=== PATIENT | female | born 1975 | race African-American/Black ===

== ENCOUNTER 2017-03-22 18:05 | Emergency (ER) | payer SELFPAY ==
[~2017-03-22] VITALS: Ht 162.6 cm; Wt 68.0 kg
[2017-03-22] MEDS ORDERED: LORazepam Inj 2mg/ml 1ml IV ONE (18:15)
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
[2017-03-22] MEDS ORDERED: Haloperidol 5mg/ml Inj IM ONE (18:30)
[2017-03-22] MEDS ORDERED: LORazepam Inj 2mg/ml 1ml IM ONE (18:30)
[2017-03-22 19:27] LABS: MEAN CORPUSCULAR HEMOGLOBIN 29.9 PG (27.0-31.0); MEAN CORPUSCULAR HGB CONC 29.5 G/DL (32.0-36.0); MEAN CORPUSCULAR VOLUME 101 FL (80-99); MEAN PLATELET VOLUME 5.5 FL (6.5-10.1); PLATELET COUNT 218 K/UL (150-450); RED BLOOD COUNT 4.18 M/UL (4.20-5.40); RED CELL DISTRIBUTION WIDTH 13.3 % (11.6-14.8); WHITE BLOOD COUNT 3.3 K/UL (4.8-10.8)
[2017-03-22 19:37] LABS: ANION GAP 9 mmol/L (5-15); CALCIUM 8.9 MG/DL (8.5-10.1); CARBON DIOXIDE 28 MMOL/L (21-32); CHLORIDE 108 MMOL/L (98-107); CREATININE 0.5 MG/DL (0.55-1.30); GLOMERULAR FILTRATION RATE > 60 mL/min (>60); POTASSIUM 5.1 MMOL/L (3.5-5.1); SODIUM 145 MMOL/L (136-145)
[2017-03-22 19:39] LABS: ALANINE AMINOTRANSFERASE 25 U/L (12-78); ALBUMIN/GLOBULIN RATIO 0.8 (1.0-2.7); ALCOHOL 397 mg/dL; ASPARTATE AMINO TRANSFERASE 40 U/L (15-37); TOTAL PROTEIN 8.5 G/DL (6.4-8.2)
[2017-03-22 19:43] LABS: ACETAMINOPHEN < 2 MCG/ML (10-30)
[2017-03-22 21:31] LABS: BAND NEUTROPHILS % (MANUAL) 0 % (0-8); BASOPHILS % (MANUAL) 1 % (0-2); EOSINOPHILS % (MANUAL) 2 % (0-3); LYMPHOCYTES % (MANUAL) 52 % (20-45); NEUTROPHILS % (MANUAL) 38 % (45-75); PLATELET ESTIMATE ADEQUATE; PLATELET MORPHOLOGY NORMAL; TOTAL CELLS COUNTED 100
[2017-03-22 21:32] LABS: MACROCYTES 1+
[2017-03-23 05:27] VITALS: BP 118/82
== END 2017-03-23 05:29 | disposition home or self-care (01) ==
LOC: EDBD 18:05 → EMR 18:35 → EDBD 18:35 → EMR 03-23 05:29
DX: F10.129 Alcohol abuse with intoxication, unspecified (principal)
CPT/HCPCS: 36415; 80053; 80307; 82962; 85007; 85025; 96372; 99284; G0480; J1630; 80329

== ENCOUNTER 2017-08-24 00:56 | Emergency (ER) | payer SELFPAY ==
[~2017-08-24] VITALS: Ht 165.1 cm; Wt 54.9 kg
[2017-08-24 01:05] VITALS: BP 130/61
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
[2017-08-24 03:05] VITALS: BP 128/68
[2017-08-24 05:40] VITALS: BP 0/0
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
== END 2017-08-24 05:40 | disposition home or self-care (01) ==
LOC: EDBD 00:56 → EMR 01:12
DX: F10.129 Alcohol abuse with intoxication, unspecified (principal); S00.531A Contusion of lip, initial encounter; S09.90XA Unspecified injury of head, initial encounter; Y09 Assault by unspecified means; Y92.9 Unspecified place or not applicable; Z88.6 Allergy status to analgesic agent
CPT/HCPCS: 70450; 99284

== ENCOUNTER 2017-11-08 07:12 | Emergency (ER) | payer OTHER, SELFPAY ==
[~2017-11-08] VITALS: Ht 167.6 cm; Wt 54.9 kg
[2017-11-08 07:36] VITALS: BP 157/101
[2017-11-08 08:40] VITALS: BP 131/89
[2017-11-08] MEDS ORDERED: CLOTRIMAZOLE15 GM TOPIC (08:40)
--- NOTE | 2017-11-08 08:45 | Emergency Room Report ---
History of Present Illness General Chief Complaint: Pain Source: Patient Present Illness HPI Patient presents with complaints of irritation around the buttock area Reports that has been ongoing for the past several days Patient did have diarrhea previously And feels that this contributed to the discomfort Denies any pain with defecation denies any abdominal pain Denies any fevers or chills Allergies: Coded Allergies: ASPIRIN (Unverified Allergy, Unknown, 08/24/17) NSAIDS (NON-STEROIDAL ANTI-INFLAMMA (Unverified Allergy, Unknown, 08/24/17) Patient History Past Medical History: see triage record Pertinent Family History: none Last Menstrual Period: 10/28/17 Now: No Reviewed Nursing Documentation: PMH: Agreed; PSxH: Agreed Nursing Documentation-PMH Past Medical History: No History, Except For Hx Cardiac Problems: Yes - endometrosis Hx Hypertension: Yes Review of Systems All Other Systems: negative except mentioned in HPI Physical Exam Vital Signs Date Time Temp Pulse Resp B/P (MAP) Pulse Ox O2 Delivery O2 Flow Rate FiO2 11/08/17 07:21 96.5 62 18 157/101 100 Room Air 96.4 Sp02 EP Interpretation: reviewed, normal General Appearance: well appearing, no apparent distress Head: normocephalic, atraumatic Eyes: bilateral eye PERRL, bilateral eye EOMI ENT: hearing grossly normal, normal pharynx Neck: supple Respiratory: lungs clear, normal breath sounds Cardiovascular #1: regular rate, rhythm Gastrointestinal: non tender, soft Rectal: other - With female nurse at bedside (jennie) patient's rectal exam reveals increased erythema on both buttock region, mild discomfort to palpation, area appears to be irritated from likely loose stool. No obvious fluctuance no cellulitis appreciated Musculoskeletal: normal inspection Neurologic: alert, oriented x3, responsive Skin: other - As above in the rectal exam Lymphatic: no adenopathy Medical Decision Making Diagnostic Impression: Primary Impression: rash Additional Impression: dermatitis ER Course Patient appears to have likely candidal type infection/contact dermatitis from the diarrhea. At this time there is no sign of any cellulitis Or abscess formation patient is provided ointment and requires close outpatient follow-up Last Vital Signs Date Time Temp Pulse Resp B/P (MAP) Pulse Ox O2 Delivery O2 Flow Rate FiO2 11/08/17 08:40 96.4 18 131/89 100 Room Air 96.4 11/08/17 07:21 62 Status: unchanged Disposition: HOME, SELF-CARE Condition: Stable Scripts Clotrimazole* (LOTRIMIN*) 15 Gm Cream..g. 1 APPLIC TOPIC TWICE A DAY for 7 Days, GM Prov: Rohit Rodas DO 11/08/17 Referrals: NON PHYSICIAN (PCP) Patient Instructions: Skin Yeast Infection, Rash, [id number] Additional Instructions: Patient is provided with the discharge instructions notified to follow up with primary doctor in the next 2-3 days otherwise return to the er with any worsening symptoms. Please note that this report is being documented using [employer] technology. This can lead to erroneous entry secondary to incorrect interpretation by the dictating instrument. Rohit Rodas DO Nov 08, 2017 08:45
[2017-11-08 08:52] VITALS: BP 131/89
== END 2017-11-08 08:54 | disposition home or self-care (01) ==
LOC: EMR 07:40
DX: L30.9 Dermatitis, unspecified (principal); I10 Essential (primary) hypertension
CPT/HCPCS: 99283

== ENCOUNTER 2017-12-17 01:45 | Emergency (ER) | payer OTHER ==
[~2017-12-17] VITALS: Ht 167.6 cm; Wt 56.7 kg
[~2017-12-17 01:45] MED LIST: CLOTRIMAZOLE15 GM TOPIC
[2017-12-17 02:03] VITALS: BP 127/79
--- NOTE | 2017-12-17 02:03 | Emergency Room Report ---
History of Present Illness General Chief Complaint: Pain Source: Patient Present Illness HPI This is a 42-year-old female who presents initially with chief complaint of back pain. But when I talked to her she started complaining of vaginitis, dysuria. Also complaining of chronic joint pain. Also complaining of headache. Also complaining of rectal bleeding his been ongoing for months. Denies any fever chills. Nothing made it better. Nothing made it worse. Pain is 10 out of 10. She is left [facility] 2 days ago Allergies: Coded Allergies: ASPIRIN (Unverified Allergy, Unknown, 08/24/17) DIPHENHYDRAMINE (Verified Allergy, Unknown, 12/17/17) Small dose ok; large dose leads to coma NSAIDS (NON-STEROIDAL ANTI-INFLAMMA (Unverified Allergy, Unknown, 08/24/17) Patient History Past Medical History: see triage record, old chart reviewed Past Surgical History: other Pertinent Family History: none Social History: Reports: alcohol use Last Menstrual Period: Unk Now: No Immunizations: other Reviewed Nursing Documentation: PMH: Agreed; PSxH: Agreed Nursing Documentation-PMH Past Medical History: No History, Except For Hx Cardiac Problems: Yes - Endometriosis Hx Hypertension: Yes Review of Systems Eye: Denies: eye pain, blurred vision ENT: Denies: ear pain, nose congestion, throat swelling Respiratory: Denies: cough, shortness of breath Cardiovascular: Denies: chest pain, palpitations Gastrointestinal: Denies: abdominal pain, diarrhea, nausea, vomiting Genitourinary: Reports: dysuria Musculoskeletal: Reports: joint pain; Denies: back pain Skin: Denies: rash Neurological: Denies: headache, numbness Endocrine: Denies: increased thirst, increased urine Hematologic/Lymphatic: Denies: easy bruising All Other Systems: negative except mentioned in HPI Physical Exam Vital Signs Date Time Temp Pulse Resp B/P (MAP) Pulse Ox O2 Delivery O2 Flow Rate FiO2 12/17/17 01:50 98.2 96 19 127/79 97 Room Air 98.2 vitals normal Sp02 EP Interpretation: reviewed, normal General Appearance: well appearing, no apparent distress, alert Head: normocephalic, atraumatic Eyes: bilateral eye PERRL, bilateral eye EOMI ENT: hearing grossly normal, normal pharynx Neck: full range of motion, supple, no meningismus Respiratory: chest non-tender, lungs clear, normal breath sounds Cardiovascular #1: regular rate, rhythm, no murmur Gastrointestinal: normal bowel sounds, non tender, no mass, no organomegaly, no bruit, non-distended Musculoskeletal: back normal, gait/station normal, normal range of motion Psychiatric: mood/affect normal Skin: warm/dry Medical Decision Making Diagnostic Impression: Primary Impression: UTI (urinary tract infection) Qualified Codes: N30.00 - Acute cystitis without hematuria Additional Impression: Pain ER Course Patient presents with chronic pain. Also with UTI. Dose of antibiotics given here. No evidence of any sepsis, meningitis, septic joint to name a few. We will discharge home. Last Vital Signs Date Time Temp Pulse Resp B/P (MAP) Pulse Ox O2 Delivery O2 Flow Rate FiO2 12/17/17 01:50 98.2 96 19 127/79 97 Room Air 98.2 Status: improved Disposition: HOME, SELF-CARE Condition: Stable Scripts Cephalexin* (KEFLEX*) 500 Mg Capsule 500 MG ORAL TID, #21 CAP Prov: IZZY SALAS M.D. 12/17/17 Additional Instructions: Follow-up with your doctor in 7 days. Return if symptom worsen. Increase fluid. IZZY SALAS M.D. Dec 17, 2017 02:03
[2017-12-17 02:42] LABS: APPEARANCE,URINE CLOUDY; BILIRUBIN, URINE NEGATIVE (NEGATIVE); GLUCOSE, URINE (UA) NEGATIVE (NEGATIVE); KETONES,URINE NEGATIVE (NEGATIVE); LEUKOCYTE ESTERASE ,URINE NEGATIVE (NEGATIVE); NITRITE,URINE NEGATIVE (NEGATIVE); PH,URINE 5 (4.5-8.0); PROTEIN,URINE 2+ (NEGATIVE); UROBILINOGEN,URINE NORMAL MG/DL (0.0-1.0)
[2017-12-17 02:47] LABS: COLOR,URINE YELLOW
[2017-12-17] MEDS ORDERED: CEPHALEXIN500 MG ORAL (02:58)
[2017-12-17] MEDS ORDERED: Acetaminophen 500mg (ES) tab ORAL ONE (03:00)
[2017-12-17] MEDS ORDERED: Cephalexin 500mg cap ORAL ONE (03:00)
[2017-12-17 03:25] VITALS: BP 125/77
== END 2017-12-17 03:25 | disposition home or self-care (01) ==
LOC: EMR 02:07
DX: N39.0 Urinary tract infection, site not specified (principal); I10 Essential (primary) hypertension
CPT/HCPCS: 80307; 81003; 81025; 87086; 99284

== ENCOUNTER 2017-12-31 07:55 | Emergency (ER) | payer OTHER ==
[~2017-12-31] VITALS: Ht 162.6 cm; Wt 68.0 kg
[~2017-12-31 07:55] MED LIST changes: +BACTRIM DOUBLE S1 E1 ORAL; +CEPHALEXIN500 MG ORAL; +PHENAZOPYRIDIN200 M1 ORAL; +TRAMADOL HCL50 MG ORAL
[2017-12-31 08:20] VITALS: BP 105/72
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
[2017-12-31 08:32] LABS: HEMATOCRIT 33.1 % (37.0-47.0); HEMOGLOBIN 9.9 G/DL (12.0-16.0); MEAN CORPUSCULAR VOLUME 88 FL (80-99); PLATELET COUNT 190 K/UL (150-450); RED BLOOD COUNT 3.77 M/UL (4.20-5.40); WHITE BLOOD COUNT 2.7 K/UL (4.8-10.8)
[2017-12-31 08:44] LABS: ANION GAP 11 mmol/L (5-15); BLOOD UREA NITROGEN 11 mg/dL (7-18); CALCIUM 8.7 MG/DL (8.5-10.1); CARBON DIOXIDE 24 MMOL/L (21-32); CHLORIDE 103 MMOL/L (98-107); CREATININE 0.7 MG/DL (0.55-1.30); POTASSIUM 4.8 MMOL/L (3.5-5.1); SODIUM 138 MMOL/L (136-145)
[2017-12-31 08:50] LABS: ALANINE AMINOTRANSFERASE 115 U/L (12-78); ALBUMIN 4.3 G/DL (3.4-5.0); ALBUMIN/GLOBULIN RATIO 0.9 (1.0-2.7); ALKALINE PHOSPHATASE 125 U/L (46-116); ASPARTATE AMINO TRANSFERASE 225 U/L (15-37); BILIRUBIN,TOTAL 0.4 MG/DL (0.2-1.0)
--- NOTE | 2017-12-31 08:59 | Diagnostic Imaging Report ---
Indication: Altered mental status Technique: Continuous helical CT scanning of the head was performed without intravenous contrast material. Axial and coronal 5 mm sections were generated. Radiation dose was minimized using automated exposure control Dose: Total Dose Length Product - DLP 1390.[address] Dose Index - CTDIvol(s) 70.38 mGy. Comparison: none Findings: The ventricular system is normal in size and configuration. There is no shift of midline structures. No abnormal extra-axial fluid collections are noted. There is no evidence of intracerebral bleeding. No other abnormal high or low density areas are noted within the brain. Eller-white differentiation is normal. Visualized orbits are unremarkable. There is ethmoid and sphenoid sinus disease, as well as inward displacement of the right lamina appreciated. The mastoids are clear Impression: Essentially normal CT scan of the head without contrast material. Incidental finding of sinus disease The CT scanner at [facility] is accredited by the [employer] and the scans are performed using protocols designed to limit radiation exposure to as low as reasonably achievable to attain images of sufficient resolution adequate for diagnostic evaluation.
[2017-12-31 13:47] VITALS: BP 105/72
== END 2017-12-31 13:20 | disposition home or self-care (01) ==
LOC: EDBD 07:55 → EMR 08:18
DX: F10.129 Alcohol abuse with intoxication, unspecified (principal); R41.82 Altered mental status, unspecified; S00.81XA Abrasion of other part of head, initial encounter; X58.XXXA Exposure to other specified factors, initial encounter; Y92.9 Unspecified place or not applicable
CPT/HCPCS: 36415; 70450; 80053; 80307; 80329; 85007; 85025; 96360; 99284

== ENCOUNTER 2018-01-02 05:19 | Emergency (ER) | payer OTHER ==
[~2018-01-02] VITALS: Ht 167.6 cm; Wt 54.4 kg
[2018-01-02 05:21] VITALS: BP 129/83
[2018-01-02] MEDS ORDERED: Acetaminophen 500mg (ES) tab ORAL ONE ×2 (05:30→05:31)
--- NOTE | 2018-01-02 05:35 | Emergency Room Report ---
History of Present Illness General Chief Complaint: Abdominal Pain Source: Patient, Medical Record Present Illness HPI This is a 42-year-old female whose been here several times for different pain complaints and alcohol intoxication. She present today with chief complaint of neck pain. No trauma. She said she has rheumatoid arthritis and his pain medication. No nausea no vomiting. Pain is 10 out of 10. Denies any other complaint. Nothing made it better. Nothing made it worse. No fever or chills. Allergies: Coded Allergies: ASPIRIN (Unverified Allergy, Unknown, 08/24/17) DIPHENHYDRAMINE (Verified Allergy, Unknown, 12/17/17) Small dose ok; large dose leads to coma NSAIDS (NON-STEROIDAL ANTI-INFLAMMA (Unverified Allergy, Unknown, 08/24/17) UNABLE TO ASSESS (Unverified , 12/31/17) Patient History Past Medical History: see triage record, old chart reviewed Past Surgical History: other Pertinent Family History: none Social History: Reports: alcohol use Last Menstrual Period: 10/30/17 Now: No : 1 Para: 0 Immunizations: other Reviewed Nursing Documentation: PMH: Agreed; PSxH: Agreed Nursing Documentation-PMH Hx Hypertension: Yes Review of Systems Eye: Denies: eye pain, blurred vision ENT: Denies: ear pain, nose congestion, throat swelling Respiratory: Denies: cough, shortness of breath Cardiovascular: Denies: chest pain, palpitations Gastrointestinal: Denies: abdominal pain, diarrhea, nausea, vomiting Musculoskeletal: Denies: back pain, joint pain Skin: Denies: rash Neurological: Denies: headache, numbness Endocrine: Denies: increased thirst, increased urine Hematologic/Lymphatic: Denies: easy bruising All Other Systems: negative except mentioned in HPI Physical Exam Vital Signs Date Time Temp Pulse Resp B/P (MAP) Pulse Ox O2 Delivery O2 Flow Rate FiO2 01/02/18 05:21 97.3 103 16 129/83 98 Room Air 97.3 Sp02 EP Interpretation: reviewed, normal General Appearance: well appearing, no apparent distress, alert Head: normocephalic, atraumatic Eyes: bilateral eye PERRL, bilateral eye EOMI ENT: hearing grossly normal, normal pharynx Neck: full range of motion, supple, no meningismus Respiratory: chest non-tender, lungs clear, normal breath sounds Cardiovascular #1: regular rate, rhythm, no murmur Gastrointestinal: normal bowel sounds, non tender, no mass, no organomegaly, no bruit, non-distended Musculoskeletal: back normal, gait/station normal, normal range of motion Psychiatric: mood/affect normal Skin: warm/dry Medical Decision Making Diagnostic Impression: Primary Impression: Neck pain, acute Additional Impression: Opioid dependence Qualified Codes: F11.20 - Opioid dependence, uncomplicated ER Course Patient presents with neck pain. This is chronic in nature. Notice of cauda equina syndrome, spinal epidural abscess or neoplastic process. She is moving around without any difficulty. She has a very large pitbull with her. She said this is her service dog. When I asked if this service animal require because of disability, she said yes for rheumatoid arthritis. When I asked 1 work or tests as the daughter been treating to perform, she said it to prevent her from falling because of her rheumatoid arthritis. Last Vital Signs Date Time Temp Pulse Resp B/P (MAP) Pulse Ox O2 Delivery O2 Flow Rate FiO2 01/02/18 05:21 97.3 103 16 129/83 98 Room Air 97.3 Status: unchanged Disposition: HOME, SELF-CARE Condition: Stable Referrals: NOT CHOSEN IPA/,REFERRING (PCP) Additional Instructions: Follow-up your Dr. for refills of your pain medication. Return if symptom worsen. Abstain from alcohol. IZZY SALAS M.D. Jan 02, 2018 05:35
[2018-01-02 05:45] VITALS: BP 129/83
== END 2018-01-02 05:45 | disposition home or self-care (01) ==
LOC: EMR 05:28
DX: M54.2 Cervicalgia (principal); F11.20 Opioid dependence, uncomplicated; Z88.6 Allergy status to analgesic agent; Z88.8 Allergy status to other drugs, medicaments and biological substances; I10 Essential (primary) hypertension; G89.29 Other chronic pain
CPT/HCPCS: 99283

== ENCOUNTER 2018-02-02 22:40 | Emergency (ER) | payer OTHER ==
[~2018-02-02] VITALS: Ht 137.2 cm; Wt 68.0 kg
[2018-02-02 22:40] VITALS: BP 126/81
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
[2018-02-03 05:32] VITALS: BP 123/80
== END 2018-02-03 05:32 | disposition home or self-care (01) ==
LOC: EDBD 22:40 → EMR 23:00
DX: F10.129 Alcohol abuse with intoxication, unspecified (principal); I10 Essential (primary) hypertension; Z88.8 Allergy status to other drugs, medicaments and biological substances
CPT/HCPCS: 99283

== ENCOUNTER 2018-04-11 11:12 | Emergency (ER) | payer MEDICAID, OTHER ==
[~2018-04-11] VITALS: Ht 167.6 cm; Wt 68.0 kg
[~2018-04-11 11:12] MED LIST changes: +UNOBMED
--- NOTE | 2018-04-11 11:14 | NUR ---
ED Nurse Note: Pt refuses to be seen by ER MD. She stated " I am ok I dont need help." a/ox4, nad noted, amb in stable condition. Dr Izquierdo aware.
[2018-04-11 11:17] VITALS: BP 128/80
[2018-04-11] MEDS ORDERED: LISINOPRIL5 MG ORAL (12:39)
--- NOTE | 2018-04-12 23:14 | Emergency Room Report ---
History of Present Illness General Chief Complaint: Alcohol Intoxication Source: EMS Present Illness Allergies: Coded Allergies: ASPIRIN (Unverified Allergy, Unknown, 08/24/17) DIPHENHYDRAMINE (Verified Allergy, Unknown, 12/17/17) Small dose ok; large dose leads to coma NSAIDS (NON-STEROIDAL ANTI-INFLAMMA (Unverified Allergy, Unknown, 08/24/17) UNABLE TO ASSESS (Unverified , 12/31/17) Nursing Documentation-PMH Past Medical History: No History, Except For Hx Cardiac Problems: No - SEIZURE Hx Hypertension: Yes Physical Exam Vital Signs Date Time Temp Pulse Resp B/P (MAP) Pulse Ox O2 Delivery O2 Flow Rate FiO2 04/11/18 11:05 82 18 128/80 100 Room Air 04/11/18 11:17 98.1 Medical Decision Making Diagnostic Impression: Primary Impression: Acute alcoholic intoxication Qualified Codes: F10.929 - Alcohol use, unspecified with intoxication, unspecified ER Course Patient presented with alcohol intoxication. Arrived on ambulance awake alert oriented. Patient got up from the [facility] in walked out of ED with steady gait. Patient refused evaluation. Last Vital Signs Date Time Temp Pulse Resp B/P (MAP) Pulse Ox O2 Delivery O2 Flow Rate FiO2 04/11/18 11:17 98.1 82 18 128/80 100 Room Air Status: improved Disposition: LEFT W/OUT BEING SEEN Condition: Stable Referrals: NOT CHOSEN IPA/,REFERRING (PCP) Patient Instructions: Alcohol Intoxication Buck Izquierdo MD Apr 12, 2018 23:14
== END 2018-04-11 11:14 | disposition left against medical advice (07) ==
LOC: EDBD 11:12 → EMR 11:14
DX: F10.929 Alcohol use, unspecified with intoxication, unspecified (principal); Z88.6 Allergy status to analgesic agent; G40.909 Epilepsy, unspecified, not intractable, without status epilepticus; I10 Essential (primary) hypertension
CPT/HCPCS: 99283

== ENCOUNTER 2018-04-11 12:41 | Emergency (ER) | payer MEDICAID, OTHER ==
[~2018-04-11] VITALS: Ht 172.7 cm; Wt 68.0 kg
[~2018-04-11 12:41] MED LIST changes: +LISINOPRIL5 MG ORAL
[2018-04-11 12:45] VITALS: BP 122/77
--- NOTE | 2018-04-11 13:18 | NUR ---
ED Nurse Note: Pt AAOX4. was brought in by ra 68 picked up from a store for ETOH, pt was here earlier with the same chief of complaint. pt is very restless and agitated
--- NOTE | 2018-04-11 13:37 | NUR ---
ED Nurse Note: PT IS SLEEPING WITH NO S/S OF ACUTE DISTRESS NOTED AT THIS TIME
--- NOTE | 2018-04-11 13:45 | NUR ---
ED Nurse Note: received pt from LUIS FELIPE Jang from [place]. Pt was brought in by [facility] due to ETOH. Pt is sleeping at this time. No s/s of distress.
[2018-04-11 14:52] VITALS: BP 111/70
--- NOTE | 2018-04-11 17:20 | NUR ---
ED Nurse Note: pt is in bed, sleeping. no s/s of distress.
[2018-04-11 18:29] VITALS: BP 118/79
--- NOTE | 2018-04-11 19:14 | NUR ---
HAND-OFF: Report given to LUIS FELIPE Kamara. Pt is in [place], sleeping. VSS.
[2018-04-11 21:30] VITALS: BP 135/80
--- NOTE | 2018-04-11 21:30 | NUR ---
ED Nurse Note: pt awaken and pt stated that she just to live this place. has warm clothing. offered food but refused. pt prefered not o disclose prefered location. pt went out the ed with all belongings.
--- NOTE | 2018-04-12 | Emergency Room Report ---
History of Present Illness General Chief Complaint: Alcohol Intoxication Source: Patient Present Illness Allergies: Coded Allergies: ASPIRIN (Unverified Allergy, Unknown, 08/24/17) DIPHENHYDRAMINE (Verified Allergy, Unknown, 12/17/17) Small dose ok; large dose leads to coma NSAIDS (NON-STEROIDAL ANTI-INFLAMMA (Unverified Allergy, Unknown, 08/24/17) UNABLE TO ASSESS (Unverified , 12/31/17) Patient History Last Menstrual Period: unknown Now: No Nursing Documentation-[facility] Hx Hypertension: Yes Physical Exam Vital Signs Date Time Temp Pulse Resp B/P (MAP) Pulse Ox O2 Delivery O2 Flow Rate FiO2 04/11/18 12:35 98.8 76 12 122/77 98 Room Air Sp02 EP Interpretation: reviewed, normal General Appearance: normal inspection, well appearing, no apparent distress, alert Head: atraumatic ENT: normal ENT inspection, hearing grossly normal, normal voice Neck: normal inspection, full range of motion, supple, no bony tend Respiratory: normal inspection, lungs clear, normal breath sounds, no respiratory distress, no retraction, no wheezing Cardiovascular #1: regular rate, rhythm, no edema Gastrointestinal: normal inspection, normal bowel sounds, non tender, soft, no guarding, no hernia Genitourinary: no CVA tenderness Musculoskeletal: normal inspection, back normal, normal range of motion Neurologic: normal inspection, alert, oriented x3, responsive, student accounts manager III-XII nml as tested, speech normal Psychiatric: normal inspection, judgement/insight normal, mood/affect normal Skin: normal inspection, normal color, no rash Medical Decision Making Diagnostic Impression: Primary Impression: Acute alcoholic intoxication ER Course Patient was endorsed to me by Dr. Izquierdo see his note for full HPI. Patient reported having some heavy alcohol intake. There is no evidence of external trauma. Patient was noted to have gradual improvement in her mental status. Patient was subsequent more awake and ambulatory without assistance. At the time of discharge patient was awake alert and oriented and a good plan for self- care. Last Vital Signs Date Time Temp Pulse Resp B/P (MAP) Pulse Ox O2 Delivery O2 Flow Rate FiO2 04/11/18 21:30 98.0 88 16 135/80 99 Room Air Status: improved Disposition: HOME, SELF-CARE Condition: Stable Referrals: NOT CHOSEN IPA/,REFERRING (PCP) Jhony Stuart MD Apr 11, 2018 23:59
--- NOTE | 2018-04-12 23:13 | Emergency Room Report ---
History of Present Illness General Chief Complaint: Alcohol Intoxication Source: Patient Present Illness HPI 42-year-old female presents ED for evaluation. Brought in by EMS status post EtOH intoxication. Upon arrival patient is lethargic but admits alcohol use. Denies drug use. Was seen here earlier today for same thing. At that time patient got off of gurney eloped from ED with steady gait. Denies any pain. No other aggravating relieving factors. Denies any other associated symptoms Allergies: Coded Allergies: ASPIRIN (Unverified Allergy, Unknown, 08/24/17) DIPHENHYDRAMINE (Verified Allergy, Unknown, 12/17/17) Small dose ok; large dose leads to coma NSAIDS (NON-STEROIDAL ANTI-INFLAMMA (Unverified Allergy, Unknown, 08/24/17) UNABLE TO ASSESS (Unverified , 12/31/17) Patient History Past Medical History: HTN Past Surgical History: none Pertinent Family History: none Social History: Denies: smoking, alcohol use, drug use Last Menstrual Period: unknown Now: No Immunizations: UTD Reviewed Nursing Documentation: PMH: Agreed; PSxH: Agreed Nursing Documentation-PMH Hx Hypertension: Yes Review of Systems All Other Systems: limited Physical Exam Vital Signs Date Time Temp Pulse Resp B/P (MAP) Pulse Ox O2 Delivery O2 Flow Rate FiO2 04/11/18 12:35 98.8 76 12 122/77 98 Room Air Sp02 EP Interpretation: reviewed, normal General Appearance: no apparent distress, GCS 15, non-toxic, other - intoxicated Head: normocephalic Eyes: bilateral eye normal inspection, bilateral eye PERRL ENT: normal ENT inspection Neck: normal inspection Respiratory: chest non-tender, lungs clear, normal breath sounds, speaking full sentences Cardiovascular #1: regular rate, rhythm, no edema Gastrointestinal: normal bowel sounds, non tender, soft, non-distended, no guarding, no rebound Rectal: deferred Genitourinary: no CVA tenderness Musculoskeletal: normal inspection Neurologic: other - intoxicated Psychiatric: other - intoxicated Skin: normal inspection Lymphatic: normal inspection Medical Decision Making Diagnostic Impression: Primary Impression: Acute alcoholic intoxication Qualified Codes: F10.929 - Alcohol use, unspecified with intoxication, unspecified ER Course Hospital Course 42-year-old female presents to ED status post EtOH intoxication Clinical course Patient placed on stretcher. Given that patient is able to provide an adequate history, I see no need to check blood work or place an IV. Patient allowed to sleep. My assessment shows no evidence of SI/HI requiring psychiatric evaluation. patient signed out to Dr Stuart pending reassessment upon sobriety Diagnosis - ETOH intoxication Last Vital Signs Date Time Temp Pulse Resp B/P (MAP) Pulse Ox O2 Delivery O2 Flow Rate FiO2 04/11/18 21:30 98.0 88 16 135/80 99 Room Air Signed Out To: Dr Stuart Referrals: NOT CHOSEN IPA/,REFERRING (PCP) Buck Izquierdo MD Apr 12, 2018 23:13
== END 2018-04-11 21:30 | disposition home or self-care (01) ==
LOC: EDBD 12:41 → EMR 15:43
DX: F10.929 Alcohol use, unspecified with intoxication, unspecified (principal); Z88.6 Allergy status to analgesic agent; Z88.8 Allergy status to other drugs, medicaments and biological substances; I10 Essential (primary) hypertension
CPT/HCPCS: 99283